=== PATIENT | female | born 1960 | race Caucasian/White ===

== ENCOUNTER 2017-03-17 05:37 | Day surgery (SDC) | payer BC, OTHER ==
[~2017-03-17] VITALS: Ht 172.7 cm; Wt 70.8 kg
--- NOTE | ~2017-03-17 | O ---
[facility] [place] [address] OPERATIVE REPORT Name: STONEY PIERREGUERLINE Buitrago Room #: DEP [facility]..#: [id number] Admission: 03/17/17 Attend Phys: Tavo Wills MD Discharge: 03/17/17 Date of : 62 Report #: [id number] THIS REPORT FOR: //name// CC: [facility] physician/PCP Tavo Wills DATE OF SERVICE: 03/17/2017 PREOPERATIVE DIAGNOSIS: Right upper lid lesion. POSTOPERATIVE DIAGNOSIS: Right upper lid lesion. PROCEDURE: Excision of right upper lid lesion with myocutaneous flap repair of defect. SURGEON: Tavo Wills M.D. COPYIST: None. ANESTHESIA: MAC. COMPLICATIONS: None. INDICATIONS FOR SURGERY: This pleasant 56-year-old woman has a polycystic lesion in her right upper lid, present for many years, thought to most likely be of epithelial origin. The lesion was large enough that it is inducing a significant mechanical ptosis. She presents today for excision of this lesion with repair of that defect. Informed consent was obtained to include, but not limit to the potential risk for loss of vision, bleeding, infection, failure to improve the problem and the potential need for further surgery or treatment. She understands that the risk of recurrence for a lesion such as this if it is epithelial in nature, is considerably high. DESCRIPTION OF PROCEDURE: The patient was taken to the operating room where 2% Xylocaine with epinephrine mixed with equal parts of 0.75% Marcaine with Wydase was administered transcutaneously to the right upper lid. The patient was subsequently prepped and draped in the usual sterile fashion. A fine tip skin marking pen was then utilized to outline a right upper lid crease incision. The incision was then made with a Jerardo scissor. The dissection was then carried down anteriorly in a suborbicularis plane going on to the surface of the lesion, which was yellow white in appearance. The more medial portion of the lesion, which appeared almost like a off of the main lesion, was more yellow in nature. The dissection was carried out 360 degrees around the lesion to its base. The eyelid was then everted and the lesion could be seen where it flipped through to the tarsal plate, which had thinned significantly. The lesion was [address] [address] OPERATIVE REPORT Name: PIERREONOFRE Room #: DEP [facility].#: [id number] Admission: 03/17/17 Attend Phys: Tavo Wills MD Discharge: 03/17/17 Date of : 62 Report #: [id number] then excised around its base and the wound copiously irrigated. The surrounding area was then undermined sufficiently to allow flap to be rotated into position to correct the defect left in the right upper lid. Hemostasis was then re-achieved. That flap was secured with interrupted 6-0 chromic sutures followed by 6-0 plain gut sutures. The wounds were then cleaned and dressed with erythromycin ophthalmic ointment. The patient was subsequently transported to the recovery area having tolerated the procedures well with no anesthetic or operative complications being noted. <ELECTRONICALLY SIGNED> By: Tavo Wills MD 03/28/17 0622 0845 0915 Tavo Wills MD /nt
--- NOTE | ~2017-03-17 | S ---
[facility] [place] [address] SURGICAL PATH RPT PROCEDURE Name: ONOFRE OLIVA Room #: 150-8 [facility]..#: [id number] Admission: 03/17/17 Date of : 62 Discharge: Report #: [id number] Path Case #: [id number] PATHOLOGY REPORT COLLECTION DATE: 03/17/2017 RECEIVED DATE: 03/17/2017 SUBMITTING PHYS: Dr. Tavo Wills OTHER PHYS: SPECIMEN(S) RECEIVED: A.Lesion right upper lid * * * * * * * * * * * * FINAL DIAGNOSIS: "Lesion right upper lid", excision: - Squamous mucosa and submucosa with epidermal inclusion cyst, reactive appearing chronic inflammation, fibrosis and histiocytic response. (See comment) (CLW:filemon; 03/18/2017) COMMENT: The fibrosis and histiocytic response likely represents recent and remote cyst rupture. No malignancy is seen. Clinical correlation is recommended. (CLW:filemon; 03/18/2017) PATHOLOGIST: Ca Nolan M.D. REPORT ELECTRONICALLY SIGNED BY: Ca Nolan M.D. DATE/TIME: 03/18/2017 13:10 * * * * * * * * * * * * GROSS PATHOLOGY: Received in formalin labeled "Onofre Oliva, lesion right upper lid" is a previously ruptured breen-white thin walled cyst which contains breen-white sebaceous material. The cyst measures 0.8 x 0.7 x 0.5 cm. There is an attached portion of breen-yellow soft tissue measuring 0.4 x 0.4 x 0.3 cm. The specimen is bisected and submitted in cassette A1. ([facility]; 03/17/2017) CLINICAL HISTORY: Lesion right upper lid. INITIAL CPT CODE(S): A; [address] [facility] [address] [place] [address] SURGICAL PATH RPT PROCEDURE Name: ONOFRE OLIVA Room #: 150-8 [facility] Paco#: [id number] Admission: 03/17/17 Date of : 62 Discharge: Report #: [id number] Path Case #: [id number] Professional services performed by [facility] at [address] , [place] [address] Technical services performed by [facility] at [address] [place] [address], [place] [address]. [facility] [address] [place] [address] PHONE: [phone] DIRECTOR: Felipe Etienne M.D. * * * END OF REPORT * * *
[~2017-03-17 05:37] MED LIST: MULTIVITAMINS1 EAC7 PO
[2017-03-17 07:49] VITALS: BP 105/78
== END 2017-03-17 14:00 | disposition home or self-care (01) ==
LOC: TBA 05:37 → OR 05:37
DX: L72.0 Epidermal cyst (principal); H01.8 Other specified inflammations of eyelid; E78.00 Pure hypercholesterolemia, unspecified; F17.210 Nicotine dependence, cigarettes, uncomplicated; Z88.6 Allergy status to analgesic agent; Z98.890 Other specified postprocedural states
CPT/HCPCS: 50010; 50101; 50398; 51636; 56531; 62110; 62850; 70005

== ENCOUNTER 2017-12-08 05:27 | Day surgery (SDC) | payer BC, OTHER ==
[~2017-12-08] VITALS: Ht 172.7 cm; Wt 72.6 kg
--- NOTE | ~2017-12-08 | PATH ---
[facility] [address] [place] [address] PATHOLOGY RPT PROCEDURE Name: ONOFRE OLIVA Room #: DEP [facility]..#: [id number] Admission: 12/08/17 Date of : 62 Discharge: 12/08/17 Report #: [id number] Path Case #: [id number] [facility] Accession Number: [id number] . 01 Material submitted: . LESION RIGHT UPPER LID . 01 Clinical history: . none provided . 02 Diagnosis: Skin, "lesion right upper lid": - Epidermal inclusion cyst completely excised. - There is no evidence of atypia or malignancy. . (SHA:at;12/09/2017) QTA/12/09/2017 . 02 Electronically signed: . Sergio Salmeron MD, Pathologist NPI- [id number] . 01 Gross description: . The specimen is received in formalin, labeled "Onofre Oliva, lesion right upper lid", is a roughly rectangular rbeen skin with the anterior margin covered with black hair. The specimen measures anterior to posterior = 1.2 cm, medial to lateral = 0.6 cm and superior to inferior = 0.4 cm. The margins are inked as follows: Anterior = red, posterior = green, medial = orange, lateral = yellow and inferior = black. The specimen is serially section from anterior to posterior into 4 pieces to reveal a 0.6 x 0.5 x 0.4 cm cyst filled with mancuso-white friable material. The specimen is entirely submitted as follows: A1. Anterior margin, perpendicular sectioned A2. Midportion, contiguous section (cyst) A3. Posterior margin, perpendicular sectioned (SWS; 12/08/2017) SHS/SHS . 02 Pathologist provided ICD-10: L72.0 . 02 CPT . 000561 Specimen Comment: A courtesy copy of this report has been sent to Specimen Comment: [phone], . Specimen Comment: Report sent to / DR ABEBE Performed at: [address] [place] [address] PATHOLOGY RPT PROCEDURE Name: ONOFRE OLIVA Room #: DEP [facility] Paco#: [id number] Admission: 12/08/17 Date of : 62 Discharge: 12/08/17 Report #: [id number] Path Case #: [id number] [facility] [address], [place], [place] [id number] MD Ramses Kohler MD Phone: [phone] Performed at: [address] [id number] MD Tiffanie Romero MD Phone: [phone]
--- NOTE | ~2017-12-08 | O ---
[facility] [place] [address] OPERATIVE REPORT Name: STONEY PIERREGUERLINE Buitrago Room #: DEP [facility].#: [id number] Admission: 12/08/17 Attend Phys: Tavo Wills MD Discharge: 12/08/17 Date of : 62 Report #: [id number] THIS REPORT FOR: //name// CC: Dr. Caesar Cuevas in [place] Monie Verduzco DATE OF SERVICE: 12/08/2017 PREOPERATIVE DIAGNOSIS: Recurrent right upper lid epithelial inclusion cyst. POSTOPERATIVE DIAGNOSIS: Recurrent right upper lid epithelial inclusion cyst. PROCEDURE: Excision of lesion of right upper lid with myocutaneous flap repair of defect. SURGEON: Tavo Wills MD. QUANTOMETER OPERATOR: None. ANESTHESIA: MAC. COMPLICATIONS: None. INDICATIONS FOR SURGERY: This pleasant 57-year-old woman has recurrent right upper lid epithelial inclusion cyst that encompasses the central one-third of her lid. She presents today for attempted definitive care for the lesion, which recurred following a prior more limited excision. The current procedure is undertaken in order to improve the patient's visual function and eliminate the lesion. The informed consent process included the potential risk for loss of vision, bleeding, infection, failure to improve the problem, the potential need for further surgery or treatment. DESCRIPTION OF PROCEDURE: The patient was taken to the operating room where 2% Xylocaine with epinephrine mixed with equal parts of 0.75% Marcaine with Wydase was administered transcutaneously to the right upper lid. The patient was subsequently prepped and aped in the usual sterile fashion. A fine tip skin marking pen was then utilized to outline the lesion including approximately 1 mm of normal tissue around its margins. The incisions were then made perpendicularly across the eyelid margin with a Jerardo scissor and then drawn to a point at the arcus marginalis. This specimen was then passed off the field and did include the entire lesion. Hemostasis was achieved in the field with diligent pinpoint monopolar cautery. The area was then undermined laterally to allow myocutaneous flap to be [address] [address] OPERATIVE REPORT Name: ONOFRE PIERRE Room #: DEP [facility]..#: [id number] Admission: 12/08/17 Attend Phys: Tavo Wills MD Discharge: 12/08/17 Date of : 62 Report #: [id number] developed. Hemostasis was then re-achieved. The flap was then advanced and secured with multiple interrupted buried 6-0 Vicryl sutures deep. The eyelid margin was reapproximated with interrupted 6-0 Vicryl sutures. A 7-0 Vicryl sutures were used around the lash line. The subcutaneous structures and the skin were then closed with interrupted buried Vicryl sutures deep and then 6-0 plain gut sutures more superficially. The wound was then cleaned and dressed with erythromycin ophthalmic ointment. The patient subsequently transported to the recovery area having tolerated the procedures well with no anesthetic or operative complications being noted. <ELECTRONICALLY SIGNED> By: Tavo Wills MD 12/12/17 0621 0839 0904 Tavo Wills MD /nt
[2017-12-08 07:30] VITALS: BP 125/69
== END 2017-12-08 09:20 | disposition home or self-care (01) ==
LOC: TBA 05:27 → OR 05:27
DX: L72.0 Epidermal cyst (principal); F17.210 Nicotine dependence, cigarettes, uncomplicated; Z88.8 Allergy status to other drugs, medicaments and biological substances; Z79.899 Other long term (current) drug therapy; Z98.890 Other specified postprocedural states
CPT/HCPCS: 50010; 50101; 50386; 50398; 51636; 56528; 56531; 62110; 62850; 70005